=== PATIENT | female | born 1970 | race African-American/Black ===

== ENCOUNTER 2022-10-12 09:01 | Emergency (ER) | payer BC ==
[2022-10-12 09:08] VITALS: BP 159/69; PULSE 68; RESP 17; TEMP 97.8; BMI 28.1
== END 2022-10-12 09:05 | disposition left against medical advice (07) ==
LOC: JER 09:01
DX: Z76.0 Encounter for issue of repeat prescription (principal)
CPT/HCPCS: 99281-25